=== PATIENT | male | born 1950 | race Caucasian/White ===

== ENCOUNTER → 2017-11-11 | Outpatient (CLI) | payer MEDICARE, OTHER ==
[2017-10-31 09:32] LABS: ABSOLUTE BASOPHILS 0.1 thou/uL (0.0-0.2); ABSOLUTE EOSINOPHILS 0.5 thou/uL (0.0-0.7); ABSOLUTE LYMPHOCYTES 3.2 thou/uL (0.8-5.3); ABSOLUTE MONOCYTES 0.7 thou/uL (0.0-1.2); ABSOLUTE NEUTROPHILS 3.5 thou/uL (1.6-8.1); BASOPHILS 0.7 %; EOSINOPHILS 6.8 %; HEMATOCRIT 44.5 % (42.0-52.0); HEMOGLOBIN 14.9 gm/dL (14.0-18.0); LYMPHOCYTES 39.8 %; MCH 32.6 pg (26.0-34.0); MCHC 33.4 g/dL (28.0-37.0); MCV 97.7 fL (80.0-100.0); MPV 6.9 fl. (7.2-11.1); NUCLEATED RBCS 0 /100WBC; PLATELET COUNT* 249 thou/uL (150-400); POLYS 43.7 %; RBC 4.55 mil/uL (4.50-6.00); RDW-CV 13.5 % (10.5-14.5)
[2017-10-31 09:40] LABS: APTT 29.7 Seconds (25.0-31.3); INR 1.1; PROTIME 10.3 Seconds (9.20-11.50)
[2017-10-31 09:49] LABS: ALBUMIN 3.8 g/dL (3.4-5.0); CALCIUM 9.3 mg/dL (8.5-10.1); CREATININE 1.2 mg/dL (0.6-1.3); POTASSIUM 4.1 mmol/L (3.5-5.1); TOTAL BILIRUBIN 0.6 mg/dL (<0.1-1.0); TOTAL PROTEIN 7.7 g/dL (6.4-8.2)
[2017-10-31 10:43] LABS: ESR (SEDRATE) 15 mm/hr (0-20)
--- NOTE | 2017-10-31 16:35 | EKG ---
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1950 Requested By: Benjamin Liu Order Number: [id number] Reading MD: Paul Hyde Measurements Intervals [place] Rate: 64 P: 4 VA: 203 QRS: -27 QRSD: 111 T: 32 QT: 399 QTc: 412 Interpretive Statements Sinus rhythm Borderline left axis deviation Abnormal R-wave progression, early transition Baseline wander in lead(s) V3,V6 No previous ECG available for comparison Electronically Signed On 10-31-2017 16:35:44 CDT by Paul Hyde [email or web address] <ELECTRONICALLY SIGNED> By: Paul Hyde MD, [facility] 10/31/17 1635 0920 09 Paul Hyde MD, FACC /EPI
[~2017-11-11] VITALS: Ht 185.4 cm; Wt 102.1 kg
[~2017-11-11] MED LIST: CANASA1000 MG RECTAL; COLACE 100 MG100 MG PO; DEXAMETHASONE NASAL; ELIQUIS2.5 MG PO; FISH OIL 1,001000 M2 PO; FLOMAX0.4 MG PO; FLONASE 0.05%50 MCG NASAL; LEVAQUIN 750 M750 MG PO; LIPITOR 20 MG T20 M1 PO; METAMUCIL1 EAC1 PO; OXYCODONE HCL 55 MG PO; PROAIR HFA8.5 GM INH; PROCTO-MED HC30 GM RECTAL; PROSCAR 5MG TABL5 MG PO; PROTONIX40 M1 PO; SALINE NASAL14.1 GM TOP; SYMBICORT160 MCG/4. INH; SYNTHROID50 MCG PO; SYSTANE 0.3-0.415 ML OPHTHALMIC; TYLENOL EXTRA500 MG PO; UNICOMPLEX M TA1 TA1 PO
== END | disposition home or self-care (01) ==
LOC: M.SUR 07:32 → M.ORTHSURG 07:32 → M.LAB 07:32 → M.TBA 07:32 → M.ORTHSURG 09:05 → EDSTATUS 12:41
PROVIDERS: Orthopaedic Surgery
DX: M16.12 Unilateral primary osteoarthritis, left hip (principal); Z53.8 Procedure and treatment not carried out for other reasons; E03.9 Hypothyroidism, unspecified; J45.909 Unspecified asthma, uncomplicated; N40.0 Benign prostatic hyperplasia without lower urinary tract symptoms; K21.9 Gastro-esophageal reflux disease without esophagitis; Z98.41 Cataract extraction status, right eye; Z98.42 Cataract extraction status, left eye; Z96.1 Presence of intraocular lens; M17.12 Unilateral primary osteoarthritis, left knee; R79.1 Abnormal coagulation profile; Z98.890 Other specified postprocedural states; Z79.899 Other long term (current) drug therapy; Z96.642 Presence of left artificial hip joint

== ENCOUNTER 2018-01-20 06:00 | Inpatient (IN) | payer MEDICARE, OTHER ==
[2018-01-09 09:52] LABS: ABSOLUTE EOSINOPHILS 0.1 thou/uL (0.0-0.7); ABSOLUTE LYMPHOCYTES 2.4 thou/uL (0.8-5.3); ABSOLUTE MONOCYTES 0.9 thou/uL (0.0-1.2); ABSOLUTE NEUTROPHILS 5.4 thou/uL (1.6-8.1); BASOPHILS 0.2 %; EOSINOPHILS 1.6 %; HEMATOCRIT 44.9 % (42.0-52.0); HEMOGLOBIN 15.1 gm/dL (14.0-18.0); LYMPHOCYTES 26.8 %; MCHC 33.6 g/dL (28.0-37.0); MCV 98.3 fL (80.0-100.0); MONOCYTES 9.9 %; MPV 7.1 fl. (7.2-11.1); NUCLEATED RBCS 0 /100WBC; PLATELET COUNT* 218 thou/uL (150-400); POLYS 61.5 %; RBC 4.56 mil/uL (4.50-6.00); RDW-CV 13.3 % (10.5-14.5); WBC 8.8 thou/uL (4.0-11.0)
[2018-01-09 10:00] LABS: APTT 30.1 Seconds (25.0-31.3); PROTIME 10.2 Seconds (9.20-11.50)
[2018-01-09 10:18] LABS: ALBUMIN 3.9 g/dL (3.4-5.0); CALCIUM 9.7 mg/dL (8.5-10.1); CREATININE 1.1 mg/dL (0.6-1.3); POTASSIUM 4.4 mmol/L (3.5-5.1); TOTAL BILIRUBIN 0.7 mg/dL (<0.1-1.0); TOTAL PROTEIN 7.5 g/dL (6.4-8.2)
[2018-01-09 11:02] LABS: ESR (SEDRATE) 10 mm/hr (0-20)
[~2018-01-20] VITALS: Ht 182.9 cm; Wt 102.1 kg
[~2018-01-20 06:00] MED LIST changes: -COLACE 100 MG100 MG PO; -ELIQUIS2.5 MG PO; -LEVAQUIN 750 M750 MG PO; -OXYCODONE HCL 55 MG PO
[2018-01-20 06:44] VITALS: BP 137/82
[2018-01-20 12:20] VITALS: BP 119/77
[2018-01-20 12:30] VITALS: BP 119/77
--- NOTE | 2018-01-20 14:56 | NUR ---
ASSUMED CARES OF PT AT 1210 FROM PACU POST TLKA. PT IN BED, BED IN LOW LOCKED POSITION, BED ALARM ON. PT A&O X4, PT DENIES PAIN AT TIME OF FLOOR ADMISSION, RECEIVED FENTANYL, MORPHINE, AND DILAUDID IN PACU PRIOR TO ARRIVING TO FLOOR. HRRR PER AUSCULTATION, PACU STATED THEY NOTED HR FLUCTUATED OFTEN JUMPING FROM 60'S TO 80'S QUICKLY. LCTAB, DIMINISHED IN LL BILATERALLY. PT EDUCATED AND ENCOURAGED TO TAKE DEEP BREATHS OFTEN WHILE ON CAPNO. BOWEL SOUNDS HYPOACTIVE. PT ORDERS WBAT, UP WITH ASSISTANCE, EARLY AMBULATION, UP TO CHAIR PO DAY 1. ANTEROLATERAL HIP PRECAUTIONS TO LEFT HIP. ABDUCTOR WEDGE IN PLACE BETWEEN LEGS FOR HIP STABILITY. [place] DRESSING ON LEFT HIP C/D/I. KURT HOSE AND CALF SCD'S IN PLACE BILATERALLY. NKDA, ENVIRONMENTAL ALLERGIES NOTED. LEFT FA 20 GAUGE IV INFUSING LR 75 ML/HR. SPOUSE AT BEDSIDE. HOURLY ROUNDS CONTINUE. WILL CONTINUE TO MONITOR PT STATUS.
[2018-01-20 17:13] VITALS: BP 134/77
--- NOTE | 2018-01-20 18:38 | NUR ---
REPORT TO BE GIVEN TO DIRECTOR OF ARCHITECTURE FOR CONTINUED CARES. PT REMAINS STABLE IN BED WITH SPOUSE AT BEDSIDE. IV IN LFA PATENT WITH LR AT 75 ML/HR. PAIN TOLERABLE. HOURLY ROUNDING COMPLETED THIS SHIFT. PT PROGRESSING TOWARDS GOAL.
--- NOTE | 2018-01-20 19:44 | NUR ---
PT REPORTED ATTEMPT TO URINATE UNSUCCESSFUL, FELT LIKE PAIN AND BURNING IN ATTEMPT. PT BLADDER SCANNED, 842 ML URINE FOUND. PT STRAIGHT CATHED, CLEAN CATCH OBTAINED AND SENT TO LAB FOR UA. DR. PEÑA GAVE LAB ORDERS FOR UA. PT STATES HE FEELS BETTER AFTER BEING CATHED. BED EXTENSION ADDED TO END OF BED FOR LENGTH PT IS TALL AND AFRAID OF FEET TOUCHING END OF BED.
[2018-01-20 20:00] VITALS: BP 112/70
[2018-01-20 23:49] VITALS: BP 113/61
[2018-01-21 03:49] VITALS: BP 103/60
[2018-01-21 04:03] LABS: HEMATOCRIT 39.9 % (42.0-52.0); HEMOGLOBIN 13.3 gm/dL (14.0-18.0)
--- NOTE | 2018-01-21 05:35 | NUR ---
PATIENT SLEPT PART OF THE NIGHT. IV FLUIDS CONTINUE TO INFUSE ORDERED. PATIENT WAS ONLY ABLE TO VOID ABOUT 20 ML. POWELL CATH WAS PLACED ABOUT 0300 AND IMMEDIATLEY DRAINED 800 ML. PATIENT WAS GIVEN PAIN MEDICINE TWICE AND NAUSEA MEDICINE ONCE. DRESSING TO LEFT HIP REMAINS INTACT. PATIENT REMAINS ON 3L WITH CAPNO IN PLACE SATTING 96-97%. WILL CONTINUE TO MONITOR.
[2018-01-21 08:00] VITALS: BP 116/62
[2018-01-21 16:00] VITALS: BP 104/50
--- NOTE | 2018-01-21 16:21 | NUR ---
MET WITH PT.AND . PT.IS NORMALLY INDEPENDENT AT HOME. WILL BE WITH HIM AT HOME AT DISCHARGE. HE HAS A WALKER AT HOME BUT HASN'T BROUGHT IT IN YET. SHE WILL TOMORROW. DISCUSSED DISCHARGE PLAN. HE HAS ALOT OF STAIRS AT HOME BUT HE CAN GO IN ON THE BASEMENT LEVEL AND HAVE A BEDROOM,LIVING ROOM AND BATH. HE WILL STAY DOWN THERE FOR A WEEK OR SO,UNTIL HE CAN DO STAIRS BETTER. HE WOULD EITHER LIKE TO USE [facility] OR [facility]. CM WILL MAKE REFERRAL IN AM AND CALL IN PRESCRIPTION FOR ELIQUIS.
[2018-01-21 19:35] VITALS: BP 107/49
[2018-01-21 20:00] VITALS: BP 112/58
--- NOTE | 2018-01-21 21:04 | NUR ---
CALL RESULTS OF EKG TO DR GOODMAN AT 2100.
--- NOTE | 2018-01-21 22:52 | NUR ---
PATIENT ALERT AND ORIENTED X4 AND DROWSY AT CHANGE OF SHIFT. ASSESSMENT COMPLETE. PATIENT HAD IRREGULAR HEART RHYTHM AT TIME OF ASSESSMENT. FINDINGS CALLED TO PHYSICIAN AND ORDERS WERE RECIEVED INCLUDING TRANSFER TO TELE. REPORT CALLED TO BOB SPANGLER. TRANFERED OFF UNIT TO TELE UNIT AT 2130 VIA BED WITH OXYGEN IN PLACE.
[2018-01-22] VITALS (7 sets, daily range): BP systolic 96–125; BP diastolic 50–66
[2018-01-22 04:29] LABS: HEMATOCRIT 35.3 % (42.0-52.0); HEMOGLOBIN 12.1 gm/dL (14.0-18.0)
--- NOTE | 2018-01-22 05:30 | NUR ---
RECEIVED REPORT FROM ANÍBAL CONTEH, AT 211. PT ARRIVED TO UNIT AT 2145 VIA BED. SPOUSE AT BEDSIDE. PT VOICED NO COMPLAINTS. ENTERPRISE APPLICATION ARCHITECT IN PLACE, TRACING SINUS TACHYCARDIA WITH PVCS. HIP PRECAUTIONS IN PLACE, SCDS IN PLACE, POWELL FOR RETENTION. CALL LIGHT WITHIN REACH. NO FALLS THIS SHIFT. HOURLY ROUNDING COMPLETED.
[2018-01-22] MEDS ORDERED: LEVAQUIN 750 M750 MG PO ×2 (09:24→18:10)
[2018-01-22] MEDS ORDERED: COLACE 100 MG100 MG PO (09:24)
[2018-01-22 09:31] LABS: CREATININE 1.3 mg/dL (0.6-1.3); MAGNESIUM 1.7 mg/dL (1.8-2.4); POTASSIUM 3.6 mmol/L (3.5-5.1)
--- NOTE | 2018-01-22 11:24 | NUR ---
Spoke with Pt, and son regarding disposition. CM discussed progress with PT, Pt stated that he was able to do more with PT today and wants to dc home at discharge. Pt declined SNF at this time. [facility] does not have HH services, so Pt is fine with using [facility] at dc. Orders received, pending voiding trial and DVT scan. CM faxed initial referral to [facility]. Following.
--- NOTE | 2018-01-22 11:58 | OP ---
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 PROCEDURE: Revision left hip hemiarthroplasty to total hip arthroplasty with insertion of acetabular shell, liner and femoral head utilizing a dual-mobility configuration with the following components: 1. A 58 mm G7 finned acetabular shell. 2. Biomet active articulation dual mobility bearing with a 28 mm head and a 46 mm bearing size. 3. [place] 28 mm with +4 mm neck BIOLOX ceramic femoral head. 4. Three G7 acetabular screws 6.5 mm x 25 mm x 2, and 30 mm length. SURGEON: Benjamin Liu DO ASSISTANTS: Arpan Kc DO and DO Noe ANESTHESIA: General. ESTIMATED BLOOD LOSS: 375 mL. SPECIMENS REMOVED: None. COMPLICATIONS: None. ANTIBIOTICS: 2 grams Ancef IV preoperatively. DISPOSITION: Stable to PACU and will be admitted to the hospital for standard postoperative care. INDICATION FOR PROCEDURE: The patient is a pleasant 67-year-old male who unfortunately sustained a femoral neck fracture on his left hip back in 2003, which was treated with a joaquín hip arthroplasty at an outside hospital. He noted [address] [address] OPERATIVE REPORT Name: VENKATA ESTRELLA Room: [address] IN [facility].#: [id number] Admission: 01/20/18 Attend Phys: Katja Monahan Discharge: Date of : 50 Report #: [id number] doing well initially after the surgery, but in the last few years, has noted progressively worsening left groin pain to the point where it is greatly impacting his quality of life, preventing him from performing activities that he wishes to. Pain is refractory to conservative measures for much greater than 6 months' duration. Recommendation was made for revision of left hip hemiarthroplasty, conversion to a total hip arthroplasty with dual mobility configuration. Risks, benefits, complications, indications and alternative treatments were discussed and the patient wished to proceed with surgery today. DESCRIPTION OF PROCEDURE: The patient was seen in the preoperative holding area. Correct operative site, left hip was initialed. The patient was taken back to operating suite, placed in supine position on the operating table, given benefit of general anesthetic. The patient was positioned in a right lateral decubitus position with his left hip facing up on the pegboard for the standard anterolateral approach. All bony prominences were well padded. Left hip and lower extremity were prepped and draped in typical fashion. Surgery began with a timeout, identifying correct patient, correct procedure, correct operative site, preoperative antibiotics and correct performing surgeon. Next, the old incision was utilized, was a curvilinear approach centered over the tip of the greater trochanter, curving proximally in a posterior fashion and curving distally in a longitudinal fashion along the mid shaft of the femur. Skin was incised with a 10 blade scalpel. Subcutaneous tissues were also incised with a 10 blade scalpel down to the level of the tensor fascia kerrie. Fascia kerrie was incised first with a knife, followed by tissue scissors in line with our skin incision. There was a moderate amount of scar tissue noted, which was debrided at this time and flaps were elevated using electrocautery. A gluteus medius layer was found and this seemed to be well repaired from previous surgery. The anterior third of the gluteus medius was elevated off the greater trochanter using electrocautery in a normal fashion. The capsule was then incised at this time in a normal H capsulotomy configuration. No concerning synovial fluid was encountered at this time. Synovial fluid seemed rather benign and normal appearing. A significant amount of scar tissue intraarticularly was debrided using electrocautery. Joaquín hip arthroplasty was then dislocated at this time. Head was removed utilizing a straight bone tamp. The periphery of the acetabulum was debrided of any soft tissue and scar tissue using electrocautery. Next, sequential reaming was performed in the normal fashion until the appropriate size was reached where there was a spherical continuity to the acetabulum and good bleeding cancellous bone. The final acetabular shell was impacted into place in acceptable anteversion and obliquity. Metal liner was then impacted into place for dual-mobility configuration. A trial dual mobility head and polyethylene liner were placed on the femoral stem. Again, the femoral stem from the previous surgery appeared very stable and there were no signs of osteolysis or any loosening, therefore, it was kept intact and utilized for conversion to a total hip arthroplasty. Of note, there was a significant amount of heterotopic ossification surrounding the [address] [address] OPERATIVE REPORT Name: VENKATA ESTRELLA Room: [address]#: [id number] Admission: 01/20/18 Attend Phys: Katja Monahan Discharge: Date of : 50 Report #: [id number] capsule and the greater trochanter, which was excised using a rongeur. Hip was reduced. Intraoperative x-rays were taken confirming appropriate leg length and offset and appropriate acetabular component positioning. Final components consisting of the dual mobility polyethylene liner and Ambika ceramic head were impacted onto the femoral stem and the hip was reduced with the final components in place. Hip was felt to be stable throughout range of motion with no signs of levering or attempted dislocation. Hip was then thoroughly irrigated. A typical local cocktail was injected. Capsular tissue was closed in a ygedxq-mw-uqrth fashion with #1 Vicryl suture. Gluteus medius was inserted into the bone using bone anchors as well as bony tunnels with a #5 Ti-Cron suture. Then, this interval was overran with a simple running #1 Vicryl suture. Fascia kerrie was closed in a qqqxdx-ip-maaol fashion with a #1 Vicryl suture. Subcutaneous tissues were closed in a simple inverted fashion with 2-0 Monocryl suture. Then, the subcuticular running suture was performed with a 3-0 Stratafix, followed by Dermabond skin glue on the skin. Mepilex dressing was applied. The patient was weaned from general anesthetic, transferred in stable condition to the PACU. All sponge and needle counts were correct x 2. <ELECTRONICALLY SIGNED> By: Yuniel Tineo DO 01/22/18 1158 1348 [id number] Duc Liu DO /baldemar
--- NOTE | 2018-01-22 12:47 | EKG ---
[place] [address] ELECTROCARDIOGRAM REPORT Name: VENKATA ESTRELLA Room: [address] ADM IN M.R.#: [id number] Admission: 01/20/18 Attend Phys: Katja Monahan Discharge: Date of : 50 Report #: [id number] THIS REPORT FOR: //name// [facility] Test Date: 2018-01-21 Test Time: 19:53:05 Pat Name: VENKATA ESTRELLA Department: Room: [address] Gender: M Carpenter: NOA : 1950 Requested By: Missy Pope Order Number: [id number] Maria Fernanda MD: Luis F Mims Measurements Intervals [place] Rate: 102 P: 37 AR: 164 QRS: -31 QRSD: 106 T: 33 QT: 339 QTc: 442 Interpretive Statements Sinus tachycardia Multiform ventricular premature complexes Probable left atrial enlargement RSR' in V1 or V2, right VCD or RVH Left ventricular hypertrophy Compared to ECG 10/31/2017 09:20:38 Ventricular premature complex(es) now present RSR' in V1 or V2 now present Left ventricular hypertrophy now present Sinus rhythm no longer present Electronically Signed On 01-22-2018 12:46:56 CDT by Luis F Mims [email or web address] <ELECTRONICALLY SIGNED> By: Luis F Mims MD, [facility] 01/22/18 1246 52 52 Luis F Mims MD, [facility] /EPI
--- NOTE | 2018-01-22 13:37 | NUR ---
ASSUMED CARE OF PT AT 0730. PT REMAINS A&O X4 CALM AND COOPERATIVE. PT C/O PAIN HAVE BEEN ADEQUATELY CONTROLLED WITH PRN PO PAIN MEDICATIONS. PT UP TO BEDSIDE COMMODE FOR BM. POWELL CATH REMOVED TO START VOIDING TRIAL TODAY. PT VSS TRACING ST WITH PVC'S. DRESSING TO LEFT HIP IS C/D/I. PT AND OT HAVE BEEN IN TO WORK WITH THE PT TODAY. PT HAS A GOOD APPETITE AND HAS ATE GREATER THAN 90% OG BREAKFAST AND LUNCH. NURSING WILL CONTINUE TO MONITOR.
[2018-01-22] MEDS ORDERED: ELIQUIS2.5 MG PO (18:08)
[2018-01-22] MEDS ORDERED: OXYCODONE HCL 55 MG PO (18:10)
--- NOTE | 2018-01-22 18:46 | NUR ---
PT UNABLE TO EMPTY BLADDER AND REFUSES TO HAVE A POWELL PLACED AT THIS TIME. PT REQUEST MORE TIME TO TRY TO EMPTY BLADDER. ALL DISCHARGE PAPERWORK IS COMPLETE AND THIS NURSE WILL PASS ON TO [facility] WHAT HAS HAPPENED. PT BLADDER SCANNED AND SHOWED 581 ML. PT HAS VOIDED 100 ML ONE HOUR AFTER SCAN WAS COMPLETED. NURSING WILL CONTINUE TO MONITOR.
[2018-01-23] VITALS: BP 109/61
--- NOTE | 2018-01-23 03:35 | NUR ---
ASSUMED PT CARE AT 1930. NURSING ASSESSMENT COMPLETED AT START OF SHIFT. POWELL INSERTED PER ORDERS AFTER PATIENT BLADDER SCANNED AND AFTER VOIDING 200 ML FOUND TO HAVE 722 ML RESIDUAL. PT TRACING SINUS TACHYCARDIA/SR WITH OCCASIONAL PVCS. PT AFEBRILE THIS SHIFT. CALL LIGHT WITHIN REACH.
[2018-01-23 04:00] VITALS: BP 90/44
[2018-01-23 08:00] VITALS: BP 124/69
[2018-01-23 09:19] LABS: URINE BILIRUBIN NEGATIVE (Negative); URINE BLOOD 3+ (Negative); URINE CLARITY CLEAR; URINE COLOR YELLOW; URINE GLUCOSE-RANDOM NEGATIVE (Negative); URINE KETONES NEGATIVE (Negative); URINE LEUKOCYTES 1+ (Negative); URINE NITRITE NEGATIVE (Negative); URINE PROTEIN TRACE (Negative); URINE SPECIFIC GRAVITY <= 1.005 (1.005-1.030); URINE UROBILINOGEN 0.2 E.U./dl (0.2-1.0)
[2018-01-23 09:27] LABS: BACTERIA 1-9 Few /HPF (None Seen); CASTS None Seen /LPF (None Seen); CRYSTALS None Seen /LPF (None Seen); MUCUS 0-3 Light strn/LPF (None Seen); SQUAMOUS 0-3 Few /LPF (0-3); URINE RBC 3-10 Few /HPF (0-2); URINE WBC 6-15 Few /HPF (0-5)
--- NOTE | 2018-01-23 09:46 | NUR ---
CALLED IN ELIQUIS PRESCRIPTION, WRITTEN, TO PT[facility]S [facility] IN [place]. RONY/PHARMACIST CALLED TO CLARIFY AMT.OF TABS TO DISPENSE. SINCE PT.ONLY TAKING 1/2 TAB BID, HE WILL ONLY NEED 14 INSTEAD OF 28 WRITTEN. COPAY IS $5.03. SW WILL LET PT.KNOW
--- NOTE | 2018-01-23 10:24 | NUR ---
ASSUMED PT CARE AT 07, FULL ASSESMENT DONE CHARTED. PT A/O X4, C/O PAIN IN LEFT HIP AT 12/15. PT C/O SOME NAUSEA, MEDS GIVEN PER SEP. LOOSE STOOLS REPORTED, PT DISCUSSED WITH THIS AM. DISCHARGE ORDERS RECIEVED. PT WORKED WITH PT/OT THIS AM. POWELL IN PLACE, PT TO KEEP IT FOR 1 WEEK AND F/U WITH UROLOGY. PTS VSS,ST/PVC'S ON THE MONITOR. FALL PRECAUTIONS IN PLACE, CALL LIGHT IN REACH. WILL CONTINUE WITH PLAN OF CARE.
[2018-01-23 11:29] VITALS: BP 124/69
[2018-01-23 12:17] VITALS: BP 125/66
== END 2018-01-23 12:55 | disposition home health service (06) | DRG 467 ==
LOC: M.ORTHSURG 06:00 → M.TBA 06:00 → M.PRE 07:03 → M.ORTHSURG 11:42 → M.PRE 14:45 → M.2W 01-21 21:28
PROVIDERS: Internal Medicine; Orthopaedic Surgery; ADMIT Internal Medicine
PROC: 0SUS09Z Supplement Left Hip Joint, Femoral Surface with Liner, Open Approach (ICD-10-PCS; principal; 2018-01-20)
PROC: 0SPB09Z Removal of Liner from Left Hip Joint, Open Approach (ICD-10-PCS; principal; 2018-01-20)
PROC: 0SPE0JZ Removal of Synthetic Substitute from Left Hip Joint, Acetabular Surface, Open Approach (ICD-10-PCS; principal; 2018-01-20)
PROC: 0SRE0JZ Replacement of Left Hip Joint, Acetabular Surface with Synthetic Substitute, Open Approach (ICD-10-PCS; principal; 2018-01-20)
DX: T84.061A Wear of articular bearing surface of internal prosthetic left hip joint, initial encounter (principal); J98.11 Atelectasis; R50.82 Postprocedural fever; Z96.642 Presence of left artificial hip joint; N40.0 Benign prostatic hyperplasia without lower urinary tract symptoms; E03.9 Hypothyroidism, unspecified; J45.909 Unspecified asthma, uncomplicated; R33.9 Retention of urine, unspecified; Y83.8 Other surgical procedures as the cause of abnormal reaction of the patient, or of later complication, without mention of misadventure at the time of the procedure; K21.9 Gastro-esophageal reflux disease without esophagitis; Z79.899 Other long term (current) drug therapy; Y92.89 Other specified places as the place of occurrence of the external cause; Z88.8 Allergy status to other drugs, medicaments and biological substances; Z98.42 Cataract extraction status, left eye; Z98.41 Cataract extraction status, right eye